=== PATIENT | female | born 1965 | race Caucasian/White ===

== ENCOUNTER → 2024-10-13 | Outpatient (CLI) | payer BC, SELFPAY ==
--- NOTE | 2024-10-13 08:13 | XR_ITS ---
Examination: Abdomen sonogram, complete Date and time of exam: October 13, 2024 0854 hours INDICATIONS: Epigastric pain and nausea beginning 3 months ago. Technique: Multiple real-time grayscale transabdominal sonographic images of the abdomen have been obtained. Findings: Normal gallbladder Normal common bile duct 0.5 cm Pancreatic head 3.4 cm Aorta not enlarged Liver 18.4 cm fatty infiltration Normal hepatopedal portal venous flow Patent IVC Right kidney 9.8 cm cortex 1.7 cm Left kidney 11.0 cm cortex 1.8 cm Moderate bilateral renal parenchymal scar formation Spleen 11.7 cm IMPRESSION: Normal gallbladder Hepatomegaly fatty infiltration Moderate bilateral renal parenchymal scar formation
--- NOTE | 2024-10-13 08:15 | XR_ITS ---
Examination: Upper GI series with KUB Esophagram standard Fluoroscopy 26 spot fluoroscopic films of the esophagus and stomach Date and time: October 13, 2024 0914 hours INDICATIONS: Abdominal pain and bloating beginning 3 months ago TECHNIQUE AND FINDINGS: Creative Specialist AP supine abdomen nonobstructive bowel gas pattern Patient swallowed thin barium with 26 spot fluoroscopic films of the esophagus and stomach fluoroscopy 0.24 minute Primary peristaltic esophageal waves Moderate intermittent gastroesophageal reflux No stricture at the gastroesophageal junction No constricting esophageal lesion No gastric mass deformity or ulceration Duodenal bulb expands symmetrically Duodenal sweep and jejunum visualized do not appear remarkable IMPRESSION: Moderate intermittent gastroesophageal reflux No stricture at the gastroesophageal junction
[2024-10-13 10:42] LABS: Basophils % (Auto) 1 % (0-2.5); Eosinophils # (Auto) 0.1 Thou/mm3 (0.0-0.5); Eosinophils % (Auto) 1 % (0-10); Hematocrit 38.9 % (36.0-46.0); Hemoglobin 13.8 g/dL (12.0-16.0); Immature Granulocytes % (Auto) 0 % (0-0); Immature Granulocytes Auto 0.02 Thou/mm3 (0.00-0.00); Lymphocytes # (Auto) 1.2 Thou/mm3 (1.0-4.8); Lymphocytes % (Auto) 18 % (10-50); Mean Corpuscular HGB Conc 35.5 g/dl (31.0-37.0); Mean Corpuscular Hemoglobin 33.6 pg (25.0-35.0); Mean Corpuscular Volume 95 fL (80-100); Monocytes # (Auto) 0.4 Thou/mm3 (0.0-0.8); Monocytes % (Auto) 7 % (0-12); Neutrophils # (Auto) 4.5 Thou/mm3 (1.8-7.7); Neutrophils % (Auto) 72 % (37-80); Nucleated Red Blood Cell % 0 /100 WBC (0); Platelet Count 212 Thou/mm3 (140-440); RDW Standard Deviation 41.4 fL (36.4-46.3); Red Blood Count 4.11 Miln/mm3 (4.00-5.20); White Blood Count 6.3 Thou/mm3 (3.6-11.0)
[2024-10-13 11:24] LABS: Alanine Aminotransferase 53 U/L (10-49); Albumin, Serum 4.3 gm/dL (3.4-4.8); Albumin/Globulin Ratio 1.5 (1.2-2.2); Alkaline Phosphatase 114 U/L (46-116); Amylase 43 U/L (30-118); Anion Gap 10 (7-16); Aspartate Amino Transferase 68 U/L (0-34); BUN/Creatinine Ratio 8 Ratio (12-20); Blood Urea Nitrogen 10 mg/dL (9-23); Calcium 9.4 mg/dL (8.3-10.6); Calcium (Corrected) 9.4 mg/dL (8.5-10.1); Chloride 95 mMol/L (98-107); Creatinine (Component) 1.2 mg/dL (0.6-1.3); Globulin 2.8 gm/dL (2.3-3.5); Glucose 125 mg/dL (74-106); Lipase 30 U/L (12-53); Osmolality,Calculated 271 (275-295); Potassium 4.1 mMol/L (3.4-5.1); Sodium 136 mMol/L (136-145); Total Protein 7.1 gm/dL (5.7-8.2); Troponin I < 0.002 ng/mL (0.0-0.045); eGFR 52 See Note
== END | disposition home or self-care (01) ==
LOC: SDIM 08:02 → COPL 10:16
PROVIDERS: PCP Family Medicine; Referring Provider Family Medicine; Visit Provider Radiology Diagnostic Radiology
DX: K21.9 Gastro-esophageal reflux disease without esophagitis (principal); K76.0 Fatty (change of) liver, not elsewhere classified; N28.89 Other specified disorders of kidney and ureter; R10.9 Unspecified abdominal pain; R11.2 Nausea with vomiting, unspecified
CPT/HCPCS: 36415; 74240; 76700; 80053; 82150; 83013; 83014; 83690; 84484; 85025; A4699

== ENCOUNTER 2025-01-27 08:30 | Day surgery (SDC) | payer BC, SELFPAY ==
[2025-01-27] VITALS (9 sets, daily range): BP systolic 82–127; BP diastolic 44–63; PULSE 66–78; RESP 11–19; TEMP 36.3–36.6; O2SAT 93–98; BMI 35.3
[2025-01-27] MEDS: SODIUM CHLORIDE 0.9% 500 ML 500 ML 20 ML IV (10:10)
[2025-01-27] MEDS: BENZOCAINE 20% (Hurricaine) SPRAY 1 DOSE TOP (10:18)
[2025-01-27] MEDS: fentaNYL CIT INJ 50 mCg/ML AMP 2ML (ASD USE ONLY) IVP (10:21)
[2025-01-27] MEDS: MIDAZOLAM INJ 1 MG/ML VIAL 2 ML (ASD USE ONLY) 2 MG IVP (10:21)
== END 2025-01-27 11:18 | disposition home or self-care (01) ==
PROVIDERS: PCP Family Medicine; Referring Provider Specialist; Visit Provider Specialist
PROC: (CPT 43239; principal; 2025-01-27 09:30)
DX: K31.7 Polyp of stomach and duodenum (principal); K29.50 Unspecified chronic gastritis without bleeding; K20.90 Esophagitis, unspecified without bleeding; K31.89 Other diseases of stomach and duodenum; I10 Essential (primary) hypertension; E78.5 Hyperlipidemia, unspecified
CPT/HCPCS: 43239; A4649; J1200; J2250; J3010; J7999; A9270

== ENCOUNTER 2025-04-04 10:57 | Emergency (ER) | payer BC, SELFPAY ==
[2025-04-04 11:45] VITALS: BP 123/71; PULSE 102; RESP 18; TEMP 36.4; O2SAT 98; BMI 33.3
--- NOTE | 2025-04-04 11:49 | EKG_ITS ---
[facility] Test Date: 2025-04-04 Pat Name: JULIAN PICKETT Department: Room: - Gender: Female [employer] Operator: : 1965 Requested By: Eric Singh ([employer] OPERATOR) Order Number: [id number] Reading MD: Eric Singh ([employer]ACHINE OPERATOR) Measurements Intervals [place] Rate: 96 P: 31 WV: 116 QRS: 22 QRSD: 88 T: 15 QT: 329 QTc: 416 Interpretive Statements SINUS RHYTHM WITH SHORT WV INTERVAL Compared to ECG 12/23/2018 08:13:57 Short WV interval now present /store/S0/[id number].pdf
--- NOTE | 2025-04-04 11:50 | PD.EDRME ---
Rapid Medical Screening Exam RME Arrival date/time: 04/04/25 10:57 59-year-old female presents to the Emergency Department and complains of nausea vomiting abdominal pain Chief Complaint: Abdominal Pain Vital signs: Vital Signs Temperature 97.6 F 04/04/25 11:45 Pulse Rate 102 H 04/04/25 11:45 Respiratory Rate 18 04/04/25 11:45 Blood Pressure 123/71 04/04/25 11:45 Pulse Oximetry (%) 98 04/04/25 11:45 Oxygen Delivery Method Room Air 04/04/25 11:45 Vital signs reviewed by provider: Yes Exam: On exam patient appears well does not appear ill or toxic Patient does have tenderness in her abdomen Clinical Impression: Lab work and imaging obtained
[2025-04-04 12:40] LABS: Basophils # (Auto) 0.0 Thou/mm3 (0.0-0.2); Basophils % (Auto) 1 % (0-2.5); Eosinophils # (Auto) 0.0 Thou/mm3 (0.0-0.5); Eosinophils % (Auto) 0 % (0-10); Hematocrit 35.9 % (36.0-46.0); Hemoglobin 12.4 g/dL (12.0-16.0); Immature Granulocytes Auto 0.03 Thou/mm3 (0.00-0.00); Lymphocytes # (Auto) 1.2 Thou/mm3 (1.0-4.8); Lymphocytes % (Auto) 15 % (10-50); Mean Corpuscular HGB Conc 34.5 g/dl (31.0-37.0); Mean Corpuscular Hemoglobin 32.5 pg (25.0-35.0); Mean Corpuscular Volume 94 fL (80-100); Monocytes # (Auto) 0.6 Thou/mm3 (0.0-0.8); Monocytes % (Auto) 7 % (0-12); Neutrophils # (Auto) 6.0 Thou/mm3 (1.8-7.7); Neutrophils % (Auto) 76 % (37-80); Nucleated Red Blood Cell # 0.00 Thou/mm3 (0.00-0.00); Nucleated Red Blood Cell % 0 /100 WBC (0); Platelet Count 233 Thou/mm3 (140-440); RDW Standard Deviation 42.2 fL (36.4-46.3); Red Blood Count 3.81 Miln/mm3 (4.00-5.20); White Blood Count 7.8 Thou/mm3 (3.6-11.0)
[2025-04-04 13:02] LABS: Alanine Aminotransferase 61 U/L (10-49); Albumin, Serum 4.6 gm/dL (3.4-4.8); Albumin/Globulin Ratio 1.7 (1.2-2.2); Alkaline Phosphatase 178 U/L (46-116); Anion Gap 14 (7-16); Aspartate Amino Transferase 127 U/L (0-34); BUN/Creatinine Ratio 7 Ratio (12-20); Bilirubin,Total 1.6 mg/dL (0.3-1.2); Blood Urea Nitrogen 17 mg/dL (9-23); Calcium 10.0 mg/dL (8.3-10.6); Calcium (Corrected) 10.0 mg/dL (8.5-10.1); Carbon Dioxide 27.1 mMol/L (20.0-31.0); Chloride 90 mMol/L (98-107); Creatinine (Component) 2.5 mg/dL (0.6-1.3); Estimated Creatinine Clearance 25.7 mL/min (>60); Globulin 2.7 gm/dL (2.3-3.5); Glucose 159 mg/dL (74-106); Lipase 44 U/L (12-53); Magnesium 1.8 mg/dL (1.6-2.6); Osmolality,Calculated 267 (275-295); Potassium 3.5 mMol/L (3.4-5.1); Sodium 131 mMol/L (136-145); Total Protein 7.3 gm/dL (5.7-8.2); Troponin I < 0.020 ng/mL (0.0-0.045); eGFR 21 See Note
--- NOTE | 2025-04-04 16:16 | XR_ITS ---
Examination: CT abdomen and pelvis without contrast. Coronal 3-D reconstructions. Sagittal 2-D reconstructions. Date and time of exam: April 04, 2025, 1723 hours INDICATIONS: Upper abdominal pain with burning sensation in the abdomen beginning today, history kidney stones July 01, 2022 CTDI: vol (mGy): 10.3 DLP: (mGycm): 602 Technique: Axial images of the abdomen have been obtained, 3 mm slice thickness Intravenous contrast material has not been administered. Low dose protocols were performed. One or more of the following dose reduction techniques were used; automated exposure control, adjustment of the mA and/or KV according to patient size, use of iterative reconstruction technique. Findings: Significant hepatomegaly with diffuse fatty infiltration throughout the liver, no focal liver lesions Absent gallbladder No pancreatic or adrenal mass Spleen is not enlarged Perinephric stranding 2 mm lower pole nonobstructing right renal calculus Normal appendix Aorta normal size Colonic diverticulosis 8 mm fat-containing umbilical hernia. No bowel obstruction Atrophic uterus Contracted urinary bladder with wall thickening, no bladder calculi Prominent osteopenia with moderate disc narrowing L2-L3, L1-L2 IMPRESSION: Significant hepatomegaly with diffuse fatty infiltration throughout the liver 2 mm nonobstructing right renal calculus No hydronephrosis or ureteral calculi Normal appendix No bladder mass or bladder calculi
[2025-04-04 16:35] LABS: Collection Type, Urine Clean Catch
[2025-04-04 16:49] LABS: Amorphous Crystals,Urine Present (Absent); Bacteria,Urine 4+; Bilirubin,Urine Negative (Negative); Blood,Urine Trace (Negative); Color,Urine Yellow (Lt Yel-Yel); Culture Indicated,Urine Contaminated; Glucose, Urine 3+ (Negative); Hyaline Casts,Urine 2 /hpf (0-1); Ketones,Urine Negative (Negative); Leukocyte Esterase,Urine Positive (Negative); Nitrite,Urine Negative (Negative); PH,Urine 5.5 (5.0-7.0); Protein,Urine 1+ (Neg - Trace); RBC,Urine 13 /hpf (0-3); Specific Gravity,Urine 1.016 (1.001-1.035); Squamous Epithelial Cell,Urine 29 /hpf (0-5); Urobilinogen,Urine Negative mg/dL (0.0-1.0); WBC,Urine 56 /hpf (0-5)
[2025-04-04 17:18] LABS: Clarity,Urine Hazy (Clear/Hazy)
--- NOTE | 2025-04-04 18:15 | PD.EDADULT ---
ED General RME/HPI General Chief complaint: Abdominal Pain Stated complaint: ABD PAIN/BURNING, N/V/D, HASN'T EATEN 7.5 DAYS Time Seen by Provider: 04/04/25 12:59 Arrival date/time: 04/04/25 10:57 CC: Epigastric pain, nausea vomiting diarrhea, decreased appetite has not eaten in 7 days ongoing for 7 days but has had abdominal issues for months . Patient has been followed by Dr. Lyons. Patient is not on any current medication related to her stomach. Patient is awake alert oriented nontoxic-appearing not in any acute distress. At the time of the exam at 1814, abdominal pain was a 3 on a 10 scale. The patient is requesting nausea medication with no active vomiting. RME / HPI RME / HPI narrative: 04/04/25 10:57 59-year-old female presents to the Emergency Department and complains of nausea vomiting abdominal pain Exam: On exam patient appears well does not appear ill or toxic Patient does have tenderness in her abdomen Impression: Lab work and imaging obtained Related Data Home Medications ?Medication ?Instructions ?Recorded ?Confirmed hydrochlorothiazide 25 mg tablet 25 mg PO QDAY 05/27/18 01/27/25 meloxicam 15 mg tablet 15 mg PO QDAY 05/27/18 01/27/25 valsartan 80 mg tablet 80 mg PO DAILY 05/27/18 01/27/25 omeprazole 20 mg capsule,delayed 20 mg PO QDAY 12/23/18 01/27/25 release atorvastatin 10 mg tablet 10 mg PO DAILY 01/27/25 01/27/25 buprenorphine 10 mcg/hour weekly 1,680 mcg topical QWEEK 01/27/25 01/27/25 transdermal patch gabapentin 300 mg capsule 300 mg PO TID 01/27/25 01/27/25 hydroxyzine HCl 25 mg tablet 25 mg PO DAILY 01/27/25 01/27/25 ondansetron HCl 4 mg tablet 4 mg PO Q12H PRN nausea and 01/27/25 01/27/25 vomiting Allergies Allergy/AdvReac Type Severity Reaction Status Date / Time Penicillins Allergy Rash Verified 04/04/25 11:00 Past Medical History Past Medical History NEUROLOGIC: Negative Neurological Disorders or Seizures CARDIAC: Positive Cardiac Disorders and Hypertension (TAKES MED); Negative Congestive Heart Failure RESPIRATORY: Negative Chronic Obstructive Pulmonary Disease (COPD) GASTROINTESTINAL: Positive Gastrointestinal Disorders, Gastroesophageal Reflux Disease and Obesity GENITOURINARY: Negative Genitourinary Disorders or Renal Disease REPRODUCTIVE: Positive Endometriosis and Previous Pregnancies (X3) MUSCULOSKELETAL: Positive Musculoskeletal Disorders, Arthritis and Fractures ENT: Positive Cataracts ENDOCRINE: Negative Endocrine Disorders, Diabetes Mellitus Type 1 or Diabetes Mellitus Type 2 HEMATOLOGIC: Negative Blood Disorders OTHER HISTORY: Positive Chicken Pox; Negative Hospitalization, Autoimmune Disease, Shingles, Falls, Blood Transfusions, Anesthesia Reactions, Chemotherapy, Radiation Therapy, MRSA or Cancer Family History FAMILY HISTORY: Negative Family Psychiatric Problems, Family Respiratory Disorders, Family Cardiac Disorders, Family Gastrointestinal Problems, Family Cancer, Family Surgery or Family Anesthesia Reaction Surgical History SURGICAL: Negative Cardiac Surgery Social History SMOKING STATUS: Former smoker ED Exam Narrative Physical exam: [General: Obese in mild discomfort but not in any acute distress Head normocephalic HEENT: Eyes pupils are PERRLA EOMs are intact mouth pink moist membranes uvula is midline swallow symmetrical phonation is normal. Nose no rhinorrhea ears no otorrhea all other subsystems of HEENT are within acceptable limits Neck is supple nontender, no JVD no edema Chest equal chest rise nontender to palpation Respiratory: Clear to auscultation no wheezes crackles or rubs CV: Rate rhythm is regular no murmurs rubs or clicks Abdomen is distended secondary to body habitus soft, epigastric tenderness with palpation no masses positive bowel sounds all 4 quadrants Back: No CVA tenderness no spinous process tenderness from cervical spine thoracic and lumbar spine Skin: Intact no petechiae rash induration ulceration or crepitus Extremities: Moving all extremity against resistance cap refill less than 2 seconds neurosensory intact. No lower extremity edema Neuro: Awake alert oriented x3 Glascow coma 15 no focal deficits] Course Course Course Narrative: Repeat CMP shows improved renal function, after IV fluids I suspect this is all dehydration related. No acute finding, the patient already has close follow-up with Dr. Lyons there is no additional medications for me to give at the patient just picked up a 90 supply of ondansetron. Patient could now be discharged home with dehydration and abdominal pain Quality Measures none Orders Category Date Time Status CT Screening NOW Care 04/04/25 11:49 Active EKG (ED ONLY) *Do not use* NOW Care 04/04/25 11:49 Completed Insert IV NOW Care 04/04/25 11:49 Active Saline [Insert IV] NOW Care 04/04/25 17:[address] abdomen pelvis wo con Stat Exams 04/04/25 16:16 Completed EKG (ED Only) Stat Exams 04/04/25 11:49 Draft US gall bladder Stat Exams 04/04/25 18:19 Completed CBC Stat Lab 04/04/25 12:08 Completed CMP [Comprehensive Metabolic Panel] Stat Lab 04/04/25 21:03 Completed Comprehensive Metabolic Panel Stat Lab 04/04/25 12:08 Completed Lipase Stat Lab 04/04/25 12:08 Completed Mag [Magnesium] Stat Lab 04/04/25 12:08 Completed Troponin I Stat Lab 04/04/25 12:08 Completed UA, C/S IF [Urinalysis, C/S if Indicated] Stat Lab 04/04/25 16:16 Completed Ondansetron Inj [Zofran Inj] Med 04/04/25 18:19 Discontinued 4 mg IVP X1 ONE Sodium Chloride 0.9% 1000 ml [Ns] 1,000 ml Med 04/04/25 17:43 Discontinued IV 999 mls/hr Vital Signs Vital signs: Vital Signs Temperature 97.6 F 04/04/25 11:45 Pulse Rate 102 H 04/04/25 11:45 Respiratory Rate 18 04/04/25 11:45 Blood Pressure 123/71 04/04/25 11:45 Pulse Oximetry (%) 98 04/04/25 11:45 Oxygen Delivery Method Room Air 04/04/25 11:45 Discharge Plan Plan Patient Disposition: HOME (Self Care) Patient condition on transfer: Stable Prescriptions/Referrals Prescriptions/Med Rec: No Action meloxicam 15 mg Tablet 15 mg PO QDAY valsartan 80 mg Tablet 80 mg PO DAILY hydrochlorothiazide 25 mg Tablet 25 mg PO QDAY omeprazole 20 mg Capsule,Delayed Release(Dr/Ec) 20 mg PO QDAY ondansetron HCl 4 mg tablet 4 mg PO Q12H PRN (Reason: nausea and vomiting) buprenorphine 10 mcg/hour patch weekly 1,680 mcg TOPICAL QWEEK Patient Comments: APPLY 1 PATCH TO SKIN EVERY 7 DAYS gabapentin 300 mg capsule 300 mg PO TID Patient Comments: TAKE 1 CAPSULE BY MOUTH THREE TIMES A DAY atorvastatin 10 mg tablet 10 mg PO DAILY Patient Comments: TAKE 1 TABLET BY MOUTH EVERY DAY hydroxyzine HCl 25 mg tablet 25 mg PO DAILY Patient Comments: TAKE 1 TABLET BY MOUTH EVERY 8 HOURS NEEDED Referrals: Kunal Awan MD [Primary Care Provider, Family Practice] - In 1 week Problem List Clinical Impression: Abdominal pain, Renal insufficiency, Dehydration Patient/Caregiver Discharge Instructions Education Materials: Abdominal Pain, Dehydration Additional Instructions: Take the medicine for nausea as needed, drink plenty of water, follow-up with Dr. Lyons as stated if there is a worsening of symptoms in spite of the interventions return the emergency room immediately for further evaluation. Print Language: Cambodian Stand Alone Forms: Alina Award Info., Work/School Release, Patient Portal Info Letter PA/MILTON Supervising Physician ROSS/MILTON Supervising Physician: Marty Figueroa ENP [facility] Clinical Information Provided by: patient Medical Records reviewed [facility] Meds/Rx considered, not ordered None Labs/Rad/Tests considered, not ordered None Chronic Illness/Social Conditions Explain: Hyperlipidemia EKG EKG not done Labs Labs: interpreted by al Lab(s) Interpretation(s): CBC shows no acute leukocytosis anemia thrombocytopenia CMP shows sodium 131 chloride of 90 BUN of 17 creatinine of 2.5. Note this is a significant elevation of the creatinine since the last blood draw glucose of 159. T. bili of 1.6 AST 127 ALT 61 alk phos at 178. Troponin is unremarkable. Urine is 3+ glucose leukocyte esterase positive WBCs at 56 squamous epithelia 29 4+ bacteria this is a contaminated specimen. Note: The patient has no urinary symptoms. Medication Administration(s) Medication Administration History Discontinued Medications Sodium Chloride (Ns) 1,000 mls @ 999 mls/hr IV .Q1H1M ONE Stop: 04/04/25 18:43 Last Infusion: 04/04/25 20:43 Dose: Infused Documented By: Admin: 04/04/25 19:40 Dose: 999 mls/hr Documented By: CVL Ondansetron HCl (Ondansetron Inj 2 Mg/Ml Inj 2 Ml) 4 mg IVP X1 ONE; Protocol Stop: 04/04/25 18:20 Last Admin: 04/04/25 19:39 Dose: 4 mg Documented By: CVL
[2025-04-04 18:19] VITALS: BP 113/78; PULSE 92; RESP 18; TEMP 36.7; O2SAT 99
--- NOTE | 2025-04-04 18:19 | XR_ITS ---
Examination: Abdomen sonogram, Limited Date and time of exam: April 04, 2025, 1926 hours INDICATIONS: Abdominal pain nausea vomiting beginning 1 week ago with elevated liver function tests on laboratory examination today. Technique: Real-time acevedo scale transabdominal sonographic images of the upper abdomen obtained. Findings: Negative for gallstones Normal gallbladder wall 0.3 cm Normal common bile duct 0.4 cm Pancreatic head 2.8 cm Liver 17.7 cm fatty infiltration no focal liver lesions Normal hepatopetal portal venous flow Patent IVC IMPRESSION: Normal gallbladder Normal common bile duct Mild to moderate hepatomegaly
[2025-04-04] MEDS: ONDANSETRON INJ 2 MG/ML INJ 2 ML 4 MG IVP (19:39)
[2025-04-04] MEDS: SODIUM CHLORIDE 0.9% 1000 ML 1,000 ML 999 ML IV (19:40)
[2025-04-04 21:40] LABS: Alanine Aminotransferase 52 U/L (10-49); Albumin, Serum 4.1 gm/dL (3.4-4.8); Albumin/Globulin Ratio 1.8 (1.2-2.2); Alkaline Phosphatase 154 U/L (46-116); Anion Gap 11 (7-16); Aspartate Amino Transferase 104 U/L (0-34); BUN/Creatinine Ratio 7 Ratio (12-20); Bilirubin,Total 1.4 mg/dL (0.3-1.2); Blood Urea Nitrogen 16 mg/dL (9-23); Calcium 9.3 mg/dL (8.3-10.6); Calcium (Corrected) 9.3 mg/dL (8.5-10.1); Carbon Dioxide 28.3 mMol/L (20.0-31.0); Chloride 94 mMol/L (98-107); Creatinine (Component) 2.3 mg/dL (0.6-1.3); Estimated Creatinine Clearance 27.9 mL/min (>60); Globulin 2.3 gm/dL (2.3-3.5); Glucose 133 mg/dL (74-106); Osmolality,Calculated 269 (275-295); Potassium 4.0 mMol/L (3.4-5.1); Sodium 133 mMol/L (136-145); Total Protein 6.4 gm/dL (5.7-8.2); eGFR 24 See Note
[2025-04-04 21:57] VITALS: RESP 18
== END 2025-04-04 21:58 | disposition home or self-care (01) ==
PROVIDERS: Nurse Practitioner Primary Care; Registered Nurse General Practice; Emergency Provider Emergency Medicine; PCP Family Medicine
DX: E86.0 Dehydration (principal); N28.9 Disorder of kidney and ureter, unspecified; R10.13 Epigastric pain; R11.2 Nausea with vomiting, unspecified; I10 Essential (primary) hypertension; Z87.891 Personal history of nicotine dependence
CPT/HCPCS: 36415; 74176; 76705; 80053; 81001; 83690; 83735; 84484; 85025; 93005; 96361; 96374; 99284; J2405; J7030